=== PATIENT | female | born 1940 | race Caucasian/White ===

== ENCOUNTER → 2017-07-05 | Outpatient (CLI) | payer MEDICARE, MEDICAID ==
[~2017-07-05] MED LIST: ASPI-715 PO; CALC-762 PO; CARB25DR2 OP; CLOB15OI16 TP; IBAN150T6 PO; LUTE6CAP11 PO; METR45CR10 TP; MULT-1335 PO; MULT-775 PO; TRIAMCINOLONE CREAM; [UNRECOGNIZED DRUG - CODE] PO
--- NOTE | 2017-07-05 14:22 | RADIOLOGY IMAGING REPORT ---
FACILITY: [facility] [place] PATIENT NAME: Celina Valentine : 1940 MR: [id number] V: [id number] EXAM DATE: ORDERING PHYSICIAN: GALILEO LOWRY TECHNOLOGIST: Location: [facility] - [place] Patient: Celina Valentine : 1940 Visit/Account:[id number] Date of Sevice: 07/05/2017 BONE MINERAL DENSITY HISTORY: Osteoporosis COMPARISON: DEXA examination 07/01/2015 FINDINGS: LUMBAR SPINE: Bone mineral density (BMD) measured from L1-L4 correlates with a Z-score of 0.9 and a T-score of -1.5 which is osteopenia as defined by the World Health Organization. The corresponding risk of fracture in the lumbar spine is 3 times compared with a young adult reference population. This value has inc reased by 5.7% since the prior study. More than 5% change is considered significant. HIP: Bone mineral density (BMD) measured in the left total hip region correlates with a Z-score of -1.7 an d a T-score of -4.1 which is osteoporosis as defined by the World Health Organization. The correspon ding risk of fracture in the hip is greater than 16 times compared with a young adult reference popul ation. This value has increased by 2.9% since the prior study. More than 5% change is considered si gnificant. Bone mineral density (BMD) measured in the left Femoral Neck region measures 0.559 g/cm2. T score is -3.4, osteoporosis IMPRESSION: 1. Lumbar spine: Osteopenia. There has been significant interval increase in the bone mineral dens ity since the previous exam. 2. Left Total Hip: Osteoporosis. There has been no significant change in the bone mineral density since the previous exam. 3. Left Femoral Neck: Bone Mineral Density is 0.559 g/cm2. Osteoporosis The next DEXA scan of this patient should include the following sites: L1-L4 and left hip. FRAX? WHO Fracture Risk Assessment Tool link: <http://www.shef.ac.uk/FRAX/tool.jsp?locationValue=9> PLEASE NOTE: 1) The World Health Organization defines low BMD as follows: T-score Normal > -1 Osteopenia < -1 and > -2.5 Osteoporosis < -2.5 without fractures Established osteoporosis < -2.5 with fractures 2) In general, you may wish to consider: Diagnosis Treatment Follow-up DEXA Normal BMD Prevention 2-3 years Osteopenia Prevention/therapy 1-2 years Osteoporosis Therapy Yearly 3) Fracture risk estimated from the T-score is more accurate for vertebral fractures (often spontane ous) than for hip fractures. Report Dictated By: Bart Dominguez MD at 07/05/2017 2:15 PM Report E-Signed By: Bart Dominguez MD at 07/05/2017 2:17 PM WSN:[email or web address]
== END ==
LOC: RAD 07-04 02:11
PROVIDERS: ATTEND Nurse Practitioner Family
DX: M81.0 Age-related osteoporosis without current pathological fracture (principal); M85.88 Other specified disorders of bone density and structure, other site
CPT/HCPCS: 77080

== ENCOUNTER → 2017-08-14 | Outpatient (CLI) | payer MEDICARE, MEDICAID ==
[~2017-08-14] MED LIST changes: +ALPR-429 PO; +DENOSUMAB 60 MG/1 ML SYR SUBQ ONE; +IBUP-56 PO
[2017-08-14 08:51] VITALS: BP 149/112
== END ==
LOC: SPU 07:52
PROVIDERS: ATTEND Nurse Practitioner Family
DX: M81.0 Age-related osteoporosis without current pathological fracture (principal)
CPT/HCPCS: 96372; J0897

== ENCOUNTER → 2018-01-19 | Outpatient (CLI) | payer MEDICARE, MEDICAID ==
[~2018-01-19] MED LIST changes: -DENOSUMAB 60 MG/1 ML SYR SUBQ ONE
--- NOTE | 2018-01-23 09:06 | RADIOLOGY IMAGING REPORT ---
FACILITY: [facility] PATIENT NAME: VIVIANA PAGE : [id number] MR: [id number] V: [id number] EXAM DATE: [id number] ORDERING PHYSICIAN: GALILEO LOWRY TECHNOLOGIST: Magda Johns PROCEDURE:BILATERAL DIGITAL SCREENING MAMMOGRAM WITH CAD ASSISTED INTERPRETATION COMPARISON:Prior mammograms dated 01/18/17, 01/18/16, 01/14/15, 01/10/14, 12/11/12, 11/30/11 INDICATIONS:SCREENING FINDINGS: Moderately dense heterogeneous fibroglandular tissue is seen throughout the breasts. Most of the parenchymal pattern has remained stable allowing for difference in mammographic technique & patient positioning. There is a focal area of increased density along the inferior portion of the Right breast in the Right MLO view posterior third for which spot compression views are recommended. DIAGNOSTIC CATEGORY 0--INCOMPLETE: NEED ADDITIONAL IMAGING EVALUATION. RECOMMENDATIONS: ADDITIONAL MAMMOGRAPHIC VIEWS REQUIRED: RIGHT BREAST. IMPRESSION: BIRADS 0: Incomplete, need additional imaging. Additional views of the Right breast recommended. Dictated by: Shalini Tavera M.D. on 01/19/2018 at 15:44 Transcribed by: JAN on 01/22/2018 at 8:12 Approved by: Shalini Tavera M.D. on 01/23/2018 at 9:05 [facility]
== END ==
LOC: MAMO 00:53
PROVIDERS: ATTEND Nurse Practitioner Family
DX: Z12.31 Encounter for screening mammogram for malignant neoplasm of breast (principal); R92.8 Other abnormal and inconclusive findings on diagnostic imaging of breast
CPT/HCPCS: 77063; 77067

== ENCOUNTER → 2018-02-06 | Outpatient (CLI) | payer MEDICARE, MEDICAID ==
--- NOTE | 2018-02-07 08:48 | RADIOLOGY IMAGING REPORT ---
FACILITY: [facility] PATIENT NAME: VIVIANA PAGE : [id number] MR: [id number] V: [id number] EXAM DATE: ORDERING PHYSICIAN: GALILEO LOWRY TECHNOLOGIST: Nedra Brand RT(R)(CT) PROCEDURE:RIGHT DIGITAL DIAGNOSTIC MAMMOGRAM WITH CAD ASSISTED INTERPRETATION COMPARISON:Prior mammograms 01/19/18, 01/18/17, 01/18/16, 01/14/15, 01/10/14, 12/11/12, 11/30/11. INDICATIONS:FURTHER EVAL FINDINGS: The patient returns for a medial lateral view of the Right breast, Spot compression view in the Right MLO projection and rolled Right MLO views. The focal area of increased density along the inferior portion of the Right breast on the recent Right MLO view appears compressible. This appeared to represent a skin fold which was most evident on the rolled views. There is no demonstration of malignant appearing mass or calcification in the Right breast. DIAGNOSTIC CATEGORY 2--BENIGN FINDING. RECOMMENDATIONS: ROUTINE MAMMOGRAM AND CLINICAL EVALUATION. IMPRESSION: BIRADS 2: Benign finding. No significant abnormality is seen. Dictated by: Shalini Tavera M.D. on 02/06/2018 at 17:12 Transcribed by: KAY on 02/07/2018 at 8:02 Approved by: Shalini Tavera M.D. on 02/07/2018 at 8:48 [facility]
== END ==
LOC: MAMO 01:59
PROVIDERS: ATTEND Nurse Practitioner Family
DX: Z12.31 Encounter for screening mammogram for malignant neoplasm of breast (principal)
CPT/HCPCS: 77061; 77065

== ENCOUNTER → 2018-02-19 | Outpatient (CLI) | payer MEDICARE, MEDICAID ==
[~2018-02-19] MED LIST changes: +ACET-2043 PO; +BACOUD TP; +BIMA2.5D5 OP; +CALC-649 PO; +CALC1TAB24 PO; +CETY454C2 TP; +CHOL10005 PO; +CYA1000 PO; +DABI150C3 PO; +DEN60I SUBQ; +DENOSUMAB 60 MG/1 ML SYR SUBQ ONE; +GUAI-244 PO; +HYDR28.486 TP; +LOPE-84 PO; +MENT118G TOP; +METO50TA19 PO; +NAPR-1043 PO; +PEDI1TAB55 PO; +TETR15DR9 OP; +VIT1CAPS34 PO
== END ==
LOC: SPU 07:41
PROVIDERS: ATTEND Nurse Practitioner Family
DX: M81.0 Age-related osteoporosis without current pathological fracture (principal)
CPT/HCPCS: 96372; J0897

== ENCOUNTER → 2018-06-26 | Outpatient (CLI) | payer MEDICARE, MEDICAID ==
[~2018-06-26] MED LIST changes: -DENOSUMAB 60 MG/1 ML SYR SUBQ ONE
--- NOTE | 2018-06-26 15:41 | EKG ---
FACILITY: [facility] [place] PATIENT NAME: VIVIANA PAGE : [id number] MR: [id number] V: [id number] EXAM DATE: ORDERING PHYSICIAN: VAUGHN MACEDO TECHNOLOGIST: ELLA Marroquin Reason : A-FIB Blood Pressure : / mmHG Vent. Rate : 114 BPM Atrial Rate : 110 BPM P-R Int : 000 ms QRS Dur : 070 ms QT Int : 336 ms P-R-T Axes : 000 073 050 degrees QTc Int : 463 ms Atrial fibrillation Nonspecific T wave findings anterior leads Abnormal ECG No previous ECGs available Confirmed by LAKEISHA PAYAN ([id number]) on 06/26/2018 10:14:58 PM Referred By: HELLEN Confirmed By:LAKEISHA PAYAN
--- NOTE | 2018-06-26 16:04 | RADIOLOGY IMAGING REPORT ---
FACILITY: [facility] PATIENT NAME: Celina Valentine : 1940 MR: [id number] V: [id number] EXAM DATE: ORDERING PHYSICIAN: VAUGHN MACEDO TECHNOLOGIST: Location: [facility] Patient: Celina Valentine : 1940 Visit/Account:[id number] Date of Sevice: 06/26/2018 CHEST PA LAT HISTORY: Chronic A. fib. Preoperative study. COMPARISON: None FINDINGS: Cardiomediastinal contours: The heart is markedly enlarged due to multichamber enlargement. This is suggestive of a dilated cardiomyopathy. Lungs and pleura: There are no findings of an infiltrate or congestive heart failure. There is no pl eural effusion. There is mild hyperinflation of the lungs. Bones/soft tissues: There is diffuse osteopenia but no findings of a vertebral body compression fract ure. IMPRESSION: 1. Dilated cardiomyopathy without findings of congestive heart failure. 2. Mild hyperinflation of the lungs. Report Dictated By: Nakul Garner MD at 06/26/2018 3:59 PM Report E-Signed By: Nakul Garner MD at 06/26/2018 4:00 PM WSN:[email or web address]
== END ==
LOC: RAD 14:56
PROVIDERS: ATTEND Nurse Practitioner Family
DX: I50.9 Heart failure, unspecified (principal); R91.8 Other nonspecific abnormal finding of lung field; R94.31 Abnormal electrocardiogram [ECG] [EKG]
CPT/HCPCS: 36415; 71046; 82040; 82247; 82310; 82374; 82435; 82565; 82947; 83036; 84075; 84132; 84155; 84295; 84443; 84450; 84460; 84520; 85027; 93005

== ENCOUNTER → 2018-08-20 | Outpatient (CLI) | payer MEDICARE, MEDICAID ==
[~2018-08-20] MED LIST changes: +DENOSUMAB 60 MG/1 ML SYR SUBQ ONE
[2018-08-20 09:27] VITALS: BP 123/76
== END ==
LOC: SPU 08:41
PROVIDERS: ATTEND Nurse Practitioner Family
DX: M81.0 Age-related osteoporosis without current pathological fracture (principal)
CPT/HCPCS: 96372; J0897

== ENCOUNTER → 2018-09-07 | Outpatient (CLI) | payer MEDICARE, MEDICAID ==
[~2018-09-07] MED LIST changes: -DENOSUMAB 60 MG/1 ML SYR SUBQ ONE; +IOPAMIDOL 76% 150 ML INFUS BTL 150 ML ONE
--- NOTE | 2018-09-07 10:24 | RADIOLOGY IMAGING REPORT ---
FACILITY: [facility] [place] PATIENT NAME: Celina Valentine : 1940 MR: [id number] V: [id number] EXAM DATE: ORDERING PHYSICIAN: GALILEO LOWRY TECHNOLOGIST: [place] [facility] [place] Celina [place] : 1940 Visit/Account:[id number] Date of Sevice: 09/07/2018 CT ABDOMEN PELVIS W/ CON HISTORY: Pelvic mass seen on x-ray last week. At [facility] TECHNIQUE: Following administration of IV contrast contiguous axial images acquired through the abdom en/pelvis. Coronal and sagittal reformatting also performed.Dose Lowering Technique One of the following dose optimization techniques was utilized in the performance of this exam: Autom ated exposure control; adjustment of the mA and/or kV according to the patient's size; or use of an i terative reconstruction technique. Specific details can be referenced in the facility's radiology C T exam operational policy. CONTRAST: 75 mL Isovue-370 COMPARISON: None. FINDINGS: Visualized lung bases: Biatrial enlargement, and coronary artery calcifications Hepatobiliary: The liver appears diffusely heterogeneous although may be related to the timing of th e contrast bolus Spleen: Negative. Adrenals: There is mild thickening of the left adrenal gland Pancreas: Severely fatty replaced Kidneys ureters or bladder: The superior pole of the left kidney appears inhomogeneous although this is likely related to motion artifact. No evidence of hydronephrosis or hydroureter Genitalia: There is a large heterogeneous coarsely calcified mass in the posterior right-sided the p danni measuring approximately 3.6 x 6.5 x 4.3 cm. If the patient does have her uterus is extremely a trophic. Just anterior and superior to this coarsely calcified pelvic mass is an additional cystic m ass measuring 4.7 x 5.2 x 5.3 cm GI: The colon appears extremely redundant with a moderate amount of fecal material seen throughout. There is no evidence of nessa bowel obstruction. The bowel within the pelvis is not ideally evaluat ed due to a paucity of internal fat planes. Vessels/spaces/nodes: Negative. Bones/soft tissues: There is a levoconvex scoliosis of the thoracolumbar spine with spondylotic russell ges. There is mild loss of height of the superior endplate of L2 there are severe degenerative arias es of the right hip joint and old posttraumatic deformity of the right hip. Moderate degenerative ch anges of the left hip joint are noted Additional findings: None pertinent. IMPRESSION: Biatrial cardiac enlargement and coronary artery calcifications The liver appears diffusely heterogeneous although may be related to timing of the contrast bolus. C orrelation with lab values suggested Severely fatty replaced pancreas There is a large heterogeneous coarsely calcified mass in the posterior right-sided the pelvis measur ing approximately 3.6 x 6.5 x 4.3 cm. The origin is uncertain however if the patient does have her u terus is extremely atrophic. Just anterior superior to this coarsely calcified pelvic mass is an add itional cystic mass measuring 4.7 x 5.2 x 5.3 cm. This may be better evaluated with MR. The colon appears extremely redundant with a moderate amount of fecal material throughout. No eviden ce of nessa bowel obstruction Mild loss of height of the superior endplate of L2 Severe degenerative changes and old fracture of the right hip Report Dictated By: Shalini Tavera MD at 09/07/2018 10:05 AM Report E-Signed By: Shalini Tavera MD at 09/07/2018 10:18 AM WSN:[email or web address]
== END ==
LOC: CT 02:23
PROVIDERS: ATTEND Nurse Practitioner Family
DX: R19.00 Intra-abdominal and pelvic swelling, mass and lump, unspecified site (principal); R93.5 Abnormal findings on diagnostic imaging of other abdominal regions, including retroperitoneum; I51.7 Cardiomegaly; I25.10 Atherosclerotic heart disease of native coronary artery without angina pectoris
CPT/HCPCS: 36415; 74177; 82565; Q9967